=== PATIENT | male | born 1950 | race Caucasian/White ===

== ENCOUNTER 2017-01-07 18:16 | Emergency (ER) | payer OTHER, BC ==
[~2017-01-07] VITALS: Ht 188 cm; Wt 86.2 kg
[2017-01-07 18:55] LABS: HEMATOCRIT 44.7 % (38.0-50.0); MCH 34.5 PG (29.0-34.0); MCHC 34.7 G/DL (30.0-36.0); MCV 99.6 FL (86-99); PLATELET COUNT 232 K/uL (156-360); RBC DIS.WIDTH-CV 12.9 % (11.8-14.6); RBC DIS.WIDTH-SD 47.3 % (39-53); RED BLOOD COUNT 4.49 M/uL (4.00-5.50); WHITE BLOOD COUNT 13.1 K/uL (4.1-10.2)
[2017-01-07 19:04] LABS: CHLORIDE 101 mEq/L (99-109); POTASSIUM 4.4 mEq/L (3.7-5.4); SODIUM 136 mEq/L (136-147)
[2017-01-07 19:06] LABS: GLUCOSE 104 mg/dL (70-99)
[2017-01-07 19:08] LABS: ANION GAP 13 MEQ/L (2-14)
[2017-01-07 19:10] LABS: GFR ESTIMATE (CALCULATED) > 59 mL/min/
[2017-01-07 19:11] LABS: UREA NITROGEN (BUN) 8 mg/dL (9-23)
[2017-01-07 19:16] LABS: TROP-I INTERPRETATION NEGATIVE; TROPONIN-I < 0.01 ng/mL (0.0-0.30)
[2017-01-07 22:14] LABS: TROP-I INTERPRETATION NEGATIVE; TROPONIN-I < 0.01 ng/mL (0.0-0.30)
[2017-01-07] MEDS ORDERED: LO-DOSE ASPIRIN81 M1 PO (22:25)
[2017-01-07] MEDS ORDERED: ZANTAC300 MG PO (22:26)
[2017-01-07 22:40] VITALS: BP 169/88
== END 2017-01-07 22:40 | disposition home or self-care (01) ==
LOC: EME 18:16
PROVIDERS: Physician Assistant
DX: R07.9 Chest pain, unspecified (principal); R42 Dizziness and giddiness; F17.200 Nicotine dependence, unspecified, uncomplicated
CPT/HCPCS: 71020; 80048; 84484; 85027; 93005; 99281; 99284